=== PATIENT | female | born 2000 | race African-American/Black ===

== ENCOUNTER 2023-01-15 21:41 | Emergency (ER) | payer SELFPAY ==
[2023-01-15 22:38] LABS: Absolute Lymphocytes (CBC) 3.1 K/uL (0.7-4.9); Hematocrit 39.6 % (36.0-45.0); Lymphocytes % 38.6 % (15.3-44.8); MCV 89.5 fL (80-100); MPV 7.6 fL (7.6-11.3); RBC Red Blood Cell Count 4.42 M/uL (3.86-4.86)
[2023-01-15 23:00] LABS: Potassium 3.2 mEq/L (3.5-5.1)
[2023-01-15 23:09] LABS: Specific Gravity 1.008 (1.005-1.030)
[2023-01-15 23:15] LABS: Specific Gravity 1.008 (1.005-1.030); Urine Bacteria None Seen /HPF (<20); Urine Bilirubin NEGATIVE (Negative); Urine Blood 2+ (Negative); Urine Clarity Turbid (Clear); Urine Color Colorless (Yellow); Urine Glucose NEGATIVE (Negative); Urine Protein NEGATIVE (Negative); Urine RBC <5 /HPF (None Seen); Urine Urobilinogen Normal (Normal); Urine pH 6.5 (5.0-7.0)
[2023-01-15] MEDS ORDERED: POTASSIUM 25 MEQ EFFERV TAB ONE (23:23)
[2023-01-16] MEDS ORDERED: KETOROLAC 30 MG/ML INJ ONE (00:01)
--- NOTE | 2023-01-16 00:11 | ER ---
Nurse's Notes [facility] Name: Radha Ray Age: 22 yrs Sex: Female : 2000 Arrival Date: 01/15/2023 Time: 21:41 Bed 20 Private MD: Diagnosis: Incomplete spontaneous without complication;Hypokalemia Presentation: 01/15 21:59 Chief complaint: Patient states: pt is 12 weeks gestation. pt started having spotting as6 yesterday but this evening bleeding at increased and pt has passed a clot. Coronavirus screen: At this time, the client does not indicate any symptoms associated with coronavirus-19. Ebola Screen: No symptoms or risks identified at this time. Initial Sepsis Screen: Does the patient meet any 2 criteria? No. Patient's initial sepsis screen is negative. Does the patient have a suspected source of infection? No. Patient's initial sepsis screen is negative. Risk Assessment: Do you want to hurt yourself or someone else? Patient reports no desire to harm self or others. Onset of symptoms was January 14, 2023. 21:59 Acuity: JACIEL 3 as6 21:59 Method Of Arrival: Ambulatory as6 Triage Assessment: 22:00 General: Appears in no apparent distress. comfortable, Behavior is cooperative, vc1 appropriate for age. Pain: Denies pain. EENT: No deficits noted. No signs and/or symptoms were reported regarding the EENT system. Neuro: Level of Consciousness is awake, alert, obeys commands, Oriented to person, place, time, situation, Appropriate for age. Cardiovascular: No deficits noted. Respiratory: Airway is patent Respiratory effort is even, unlabored, Respiratory pattern is regular, symmetrical. GI: No deficits noted. No signs and/or symptoms were reported involving the gastrointestinal system. : Reports vaginal bleeding that is. Derm: No deficits noted. No signs and/or symptoms reported regarding the dermatologic system. Musculoskeletal: No deficits noted. No signs and/or symptoms reported regarding the musculoskeletal system. 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 - Social history:: Smoking status: Patient denies any tobacco usage or history of. Screenin:00 [facility] ED Fall Risk Assessment (Adult) History of falling in the last 3 months, vc1 including since admission No falls in past 3 months (0 pts) Confusion or Disorientation No (0 pts) Intoxicated or Sedated No (0 pts) Impaired Gait No (0 pts) Mobility Assist Device Used No (0 pt) Altered Elimination No (0 pt) Score/Fall Risk Level 0 - 2 = Low Risk Oriented to surroundings, Maintained a safe environment, Educated pt \T\ family on fall prevention, incl call for assistance when getting out of bed. Abuse screen: Denies threats or abuse. Nutritional screening: No deficits noted. Tuberculosis screening: No symptoms or risk factors identified. Assessment: 22:00 Obstetrical Assessment: General assessment: awake and alert, Patient reports vaginal vc1 bleeding. Pain: Denies pain. : Reports vaginal bleeding that is. Vital Signs: 21:59 BP 123 / 89; Pulse 70; Resp 18 S; Temp 98.7(O); Pulse Ox 100% on R/A; Weight 58.97 kg as6 (R); Height 5 ft. 5 in. (R); Pain 6/10; 22:30 BP 116 / 95; Pulse 83; Resp 17; Pulse Ox 100% ; vc1 21:59 Body Mass Index 21.63 (58.97 kg, 165.1 cm) as6 21:59 Pain Scale: Adult as6 Vitals: 23:46 Heart Tones Not far enough in gestation. vc1 ED Course: 21:45 Patient arrived in ED. kj1 21:48 Jacki Duggan FNP-C is PHCP. snw 21:[address] MD is Attending Physician. snw 21:58 Arm band placed on. as6 22:00 Patient has correct armband on for positive identification. Bed in low position. Pulse vc1 ox on. NIBP on. 22:01 Triage completed. as6 22:16 Shyla Tan, RN is Primary Nurse. vc1 22:35 1St Trimest Single 1St Fetus In Process Unspecified. EDMS 22:43 Abo/rh Typing Sent. vc1 22:43 Basic Metabolic Panel Sent. vc1 22:43 CBC with Diff Sent. vc1 22:43 Test, Urine Sent. vc1 22:43 Quantitative Hcg Sent. vc1 22:43 Urinalysis w/ reflexes Sent. vc1 01/16 00:41 No provider procedures requiring assistance completed. IV discontinued, intact, vc1 bleeding controlled, No redness/swelling at site. Pressure dressing applied. Administered Medications: 01/15 23:34 Drug: Potassium PO Effervescent Tablet 50 mEq Route: PO; vc1 23:57 Drug: Ketorolac IVP 15 mg Route: IVP; Site: right antecubital; vc1 Medication: 23:45 VIS not applicable for this client. vc1 Point of Care Testing: Urine : 23:45 hCG Reading: Positive; Control Reading: Positive; vc1 Outcome: 01/16 00:10 Discharge ordered by . [email or web address] 00:41 Discharged to home ambulatory, with significant other. vc1 00:41 Condition: good 00:41 Discharge instructions given to patient, Instructed on discharge instructions, follow up and referral plans. Demonstrated understanding of instructions, follow-up care. 00:41 Patient left the ED. vc1 Signatures: Dispatcher [employer] EDMS Jacki Duggan, CORRECTIONAL NURSE-C CORRECTIONAL NURSE-Csnw Mireya Gaviria kj1 Archie Joy, RN RN as6 Shyla Tan RN RN vc1
--- NOTE | 2023-01-16 00:11 | EDPHYS ---
Physician Documentation [facility] Name: Radha Ray Age: 22 yrs Sex: Female : 2000 Arrival Date: 01/15/2023 Time: 21:41 Bed 20 Private MD: ED Physician Endy Lane HPI: 01/15 22:09 This 22 yrs old Black Female presents to ER via Ambulatory with complaints of Vaginal snw Bleeding, + Preg <12wks. 22:09 The patient presents with vaginal bleeding that is light, with clots. Onset: The snw symptoms/episode began/occurred suddenly, yesterday, and became worse just prior to arrival. Modifying factors: The symptoms are alleviated by nothing, the symptoms are aggravated by nothing. Associated signs and symptoms: Pertinent positives: cramping, vaginal bleeding. Severity of symptoms: At their worst the symptoms were very mild. Previous pregnancies: in previous pregnancies patient has had vaginal delivery, PIH. Associated signs and symptoms: Pertinent positives: vaginal bleeding. 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 - Social history:: Smoking status: Patient denies any tobacco usage or history of. ROS: 22:08 Constitutional: Negative for fever, chills, and weight loss, Eyes: Negative for injury, snw pain, redness, and discharge, ENT: Negative for injury, pain, and discharge, Neck: Negative for injury, pain, and swelling, Cardiovascular: Negative for chest pain, palpitations, and edema, Respiratory: Negative for shortness of breath, cough, wheezing, and pleuritic chest pain, Abdomen/GI: Negative for abdominal pain, nausea, vomiting, diarrhea, and constipation, Back: Negative for injury and pain, MS/Extremity: Negative for injury and deformity, Skin: Negative for injury, rash, and discoloration, Neuro: Negative for headache, weakness, numbness, tingling, and seizure, Psych: Negative for depression, anxiety, suicide ideation, homicidal ideation, and hallucinations. 22:08 : Positive for vaginal bleeding, "period like cramping". Exam: 22:08 Constitutional: This is a well developed, well nourished patient who is awake, alert, snw and in no acute distress. Head/Face: Normocephalic, atraumatic. Eyes: Pupils equal round and reactive to light, extra-ocular motions intact. Lids and lashes normal. Conjunctiva and sclera are non-icteric and not injected. Cornea within normal limits. Periorbital areas with no swelling, redness, or edema. ENT: Nares patent. No nasal discharge, no septal abnormalities noted. Tympanic membranes are normal and external auditory canals are clear. Oropharynx with no redness, swelling, or masses, exudates, or evidence of obstruction, uvula midline. Mucous membranes moist. Neck: Trachea midline, no thyromegaly or masses palpated, and no cervical lymphadenopathy. Supple, full range of motion without nuchal rigidity, or vertebral point tenderness. No Meningismus. Chest/axilla: Normal chest wall appearance and motion. Nontender with no deformity. No lesions are appreciated. Cardiovascular: Regular rate and rhythm with a normal S1 and S2. No gallops, murmurs, or rubs. Normal PMI, no JVD. No pulse deficits. Respiratory: Lungs have equal breath sounds bilaterally, clear to auscultation and percussion. No rales, rhonchi or wheezes noted. No increased work of breathing, no retractions or nasal flaring. Abdomen/GI: Soft, non-tender, with normal bowel sounds. No distension or tympany. No guarding or rebound. No evidence of tenderness throughout. Back: No spinal tenderness. No costovertebral tenderness. Full range of motion. Skin: Warm, dry with normal turgor. Normal color with no rashes, no lesions, and no evidence of cellulitis. MS/ Extremity: Pulses equal, no cyanosis. Neurovascular intact. Full, normal range of motion. Neuro: Awake and alert, GCS 15, oriented to person, place, time, and situation. Cranial nerves II-XII grossly intact. Motor strength 5/5 in all extremities. Sensory grossly intact. Cerebellar exam normal. Normal gait. Psych: Awake, alert, with orientation to person, place and time. Behavior, mood, and affect are within normal limits. Vital Signs: 21:59 BP 123 / 89; Pulse 70; Resp 18 S; Temp 98.7(O); Pulse Ox 100% on R/A; Weight 58.97 kg as6 (R); Height 5 ft. 5 in. (R); Pain 6/10; 22:30 BP 116 / 95; Pulse 83; Resp 17; Pulse Ox 100% ; vc1 21:59 Body Mass Index 21.63 (58.97 kg, 165.1 cm) as6 21:59 Pain Scale: Adult as6 MDM: 21:57 Patient medically screened. snw 22:11 Differential diagnosis: threatened Ab, postcoital bleeding, urinary tract infection. snw Data reviewed: vital signs, nurses notes. 22:30 Counseling: I had a detailed discussion with the patient and/or guardian regarding: snw discussed results of ultrasound with Patient and family. Evidence of demise. No heartbeat, 8wk, 5 days. Pt tearful but voices understanding of results and tx plan. 01/16 00:08 Management of patient was discussed with the following: Dr. Lane. Special snw discussion: Based on the patient's Hx, exam, and Dx evaluation, there is no indication for emergent surgery or inpatient Tx. It is understood by the patient/guardian that if the Sx's persist or worsen they need to return immediately for re-evaluation. Based on the history and exam findings, there is no indication for further emergent testing or inpatient evaluation. I discussed with the patient/guardian the need to see the OB Gyne specialist for further evaluation of the symptoms. 01/15 22:03 Order name: Abo/rh Typing; Complete Time: 23:05 snw 01/15 22:03 Order name: Basic Metabolic Panel; Complete Time: 23:33 snw 01/15 22:03 Order name: CBC with Diff; Complete Time: 22:52 snw 01/15 22:03 Order name: Test, Urine; Complete Time: 23:15 snw 01/15 22:03 Order name: Quantitative Hcg; Complete Time: 23:33 snw 01/15 22:03 Order name: Urinalysis w/ reflexes; Complete Time: 23:16 snw 01/15 22:35 Order name: 1St Trimest Single 1St Fetus EDMS 01/15 22:03 Order name: IV Saline Lock; Complete Time: 22:43 snw 01/15 22:03 Order name: Labs collected and sent; Complete Time: 22:43 snw 01/15 22:03 Order name: NPO; Complete Time: 22:43 snw Administered Medications: 01/15 23:34 Drug: Potassium PO Effervescent Tablet 50 mEq Route: PO; vc1 23:57 Drug: Ketorolac IVP 15 mg Route: IVP; Site: right antecubital; vc1 Point of Care Testing: Urine : 23:45 hCG Reading: Positive; Control Reading: Positive; vc1 Disposition: 01/16 03:08 Co-signature as Attending Physician, Endy Lane MD I agree with the assessment sp4 and plan of care. I reviewed the patient's care provided by the Advanced Practice Provider and agree with the diagnosis and treatment plan. Disposition Summary: 01/16/23 00:10 Discharge Ordered Location: Home snw Condition: Stable snw Diagnosis - Incomplete spontaneous without complication snw - Hypokalemia snw Followup: snw - With: Emergency Department - When: As needed - Reason: Worsening of condition Followup: snw - With: Private Physician - When: 2 - 3 days - Reason: Recheck today's complaints, Continuance of care, Re-evaluation by your physician Discharge Instructions: - Discharge Summary Sheet snw - Potassium Content of Foods snw - Incomplete Miscarriage snw - Hypokalemia snw - Managing Loss snw Forms: - Medication Reconciliation Form snw - Thank You Letter snw - Antibiotic Education snw - Prescription Opioid Use snw - [email or web address] snw Signatures: Dispatcher [employer] EDMS Jacki Duggan, BUSINESS PROCESS LEAD-C BUSINESS PROCESS LEAD-Csnw Archie Joy RN RN as6 Shyla Tan RN RN vc1 Endy Lane MD MD sp4 Corrections: (The following items were deleted from the chart) 01/15 22:35 22:03 Transvaginal Ob+US.RAD.BRZ ordered. EDMS EDMS
[2023-01-16 00:46] VITALS: TEMP 98.7; O2SAT 100
[2023-01-16 00:47] VITALS: BP 116/95
--- NOTE | 2023-01-16 22:19 | RAD REPORT ---
EXAM DESCRIPTION: US - 1St Trimest Single 1St Fetus - 01/15/2023 10:34 pm CLINICAL HISTORY: ABD CRAMPING, TECHNIQUE: Real-time limited ultrasound of the maternal uterus with image documentation. COMPARISON: No relevant prior studies available. FINDINGS: Fetus: Single intrauterine gestational sac. The crown-rump length measures 22 mm corre sponding to an estimated gestational age of 8 weeks 5 days. No demonstrable cardiac activity. Uterus: The uterus is anteverted. Adnexa: Neither ovary is visualized. No adnexal mass. IMPRESSION: 1. Single intrauterine gestation. No identifiable cardiac activity. ca rdiac activity should be visualized when the average gestational sac diameter measures 25 mm or great er and the pole measures 7 mm or greater. Findings are suspicious for demise. Careful follow-up including correlation with quantitative beta hCG levels is recommended. 2. Estimated gestational age by crown-rump length is 8 weeks 5 days. THIS REPORT CONTAINS FINDINGS THAT MAY BE CRITICAL TO PATIENT CARE: The findings were verbally discus sed via telephone conference with Jannet Duggan NP, on 01/15/2023 11:04 PM CDT. The results were ackn owledged and understood. Electronically signed by: Heidi Barakat MD 01/15/2023 11:04 PM CDT Due to temporary technical issues with the PACS/Fluency reporting system, reports are being signed by the in house radiologists without review as a courtesy to insure prompt reporting. The interpreting radiologist is fully responsible for the content of the report.
== END 2023-01-16 00:41 | disposition home or self-care (01) ==
LOC: ER 21:41
DX: O03.4 Incomplete spontaneous abortion without complication (principal); E87.6 Hypokalemia
CPT/HCPCS: 36415; 76801; 80048; 81001; 81025; 84702; 85025; 86900; 86901; 96374; 99284